=== PATIENT | male | born 1960 | race African-American/Black ===

== ENCOUNTER 2024-09-26 16:56 | Inpatient (IN) | payer BC, OTHER ==
[2024-09-26 17:24] VITALS: BMI 21.9
[2024-09-26] MEDS ORDERED: guaiFENesin 600 MG TABLET.ER (FP) PO PRN (18:00)
[2024-09-26] MEDS ORDERED: ACETAMINOPHEN 325 MG TABLET (FP) PO PRN (18:00)
[2024-09-26] MEDS ORDERED: P-EPHED 60MG/TRIPROLIDI 2.5MG TABLET PO PRN (18:00)
[2024-09-26] MEDS ORDERED: hydrOXYzine PAMOATE 25 MG CAPSULE (FP) PO PRN (18:00)
[2024-09-26] MEDS ORDERED: IBUPROFEN 400 MG TABLET (FP) PO PRN (18:00)
[2024-09-26] MEDS ORDERED: MAGNESIUM HYDROX 2400MG/30ML ORAL SUSPENSION 30 ML CUP PO PRN (18:00)
[2024-09-26] MEDS ORDERED: IBUPROFEN 600 MG TABLET (FP) PO PRN (18:00)
[2024-09-26] MEDS ORDERED: LOPERAMIDE HCL 2 MG CAPSULE PO PRN (18:00)
[2024-09-26] MEDS ORDERED: NALOXONE (NARCAN) HCL 4 MG/0.1 ML SPRAY NS PRN (18:00)
[2024-09-26] MEDS ORDERED: BENZONATATE 200 MG CAPSULE PO PRN (18:00)
[2024-09-26] MEDS ORDERED: POLYETHYLENE GLYCOL (HEALTHYLAX) 3350 17 GM PACKET PO PRN (18:00)
[2024-09-26] MEDS ORDERED: propRANOLol HCL 10 MG TABLET ONE (18:57)
[2024-09-26] MEDS: propRANOLol HCL 10 MG TABLET PO ONE (19:06)
[2024-09-26] MEDS: TUBERCULIN PPD 5 TU/0.1ML SYRINGE (IN PATIENT USE ONLY) ID ONE (21:51)
[2024-09-26] MEDS: amLODIPine BESYLATE 5 MG TABLET (FP) PO SCH (22:02)
[2024-09-26] MEDS: MELATONIN 5 MG TABLETS PO SCH (22:02)
[2024-09-26] MEDS: THIAMINE 100 MG TABLET PO SCH (22:02)
[2024-09-26] MEDS: ASPIRIN COATED 81 MG TABLET.EC PO SCH (22:02)
[2024-09-26] MEDS ORDERED: TUBERCULIN PPD 5 TU/0.1ML VIAL ID ONE (22:33)
[2024-09-27] MEDS: PRENATAL VITAMINS W/ FOLIC ACID TABLET (FP) PO SCH (09:34)
[2024-09-27 11:44] LABS: HEMATOCRIT 35.8 % (35.4-49); HEMOGLOBIN 11.3 GM/dL (11.7-16.9); MCH 29.1 pg (25.7-33.7); MCHC 31.6 g/dl (32.0-35.9); MEAN CELL VOLUME 91.9 fl (80-96); MEAN PLT VOLUME 10.4 fl (7.5-11.1); PLATELET COUNT 143 10^3/uL (134-434); RDW 15.3 % (11.9-15.9); WHITE BLOOD COUNT 4.6 K/mm3 (4.0-10.0)
[2024-09-27 12:16] LABS: CHLORIDE 112 mmol/L (98-107); POTASSIUM 4.2 mmol/L (3.5-5.1); SODIUM 141 mmol/L (136-145)
[2024-09-27 12:19] LABS: CALCIUM 8.4 mg/dL (8.5-10.1)
[2024-09-27 12:20] LABS: ALBUMIN 2.8 g/dl (3.4-5.0); ANION GAP 2 mmol/L (4-13); BLOOD UREA NITROGEN 15.5 mg/dL (7-18); CO2 27 mmol/L (21-32); GLUCOSE,RANDOM 106 mg/dL (74-106)
[2024-09-27 12:23] LABS: CREATININE 1.2 mg/dL (0.55-1.3); SGOT/AST 22 U/L (15-37); SGPT/ALT 26 U/L (13-61)
[2024-09-27 12:24] LABS: BILIRUBIN,TOTAL 0.2 mg/dL (0.2-1)
[2024-09-27 12:25] LABS: TOT PROT 6.4 g/dl (6.4-8.2)
[2024-09-27 12:26] LABS: ALK PHOS 63 U/L (45-117)
[2024-09-27 15:08] LABS: PH,URINE 6.5 (5.0-8.0); URINE APPEARANCE CLEAR; URINE BILIRUBIN NEGATIVE (NEGATIVE); URINE COLOR YELLOW; URINE GLUCOSE (UA) NEGATIVE (NEGATIVE); URINE KETONE TRACE (NEGATIVE); URINE LEUK ESTERASE NEGATIVE (NEGATIVE); URINE NITRITE NEGATIVE (NEGATIVE); URINE PROTEIN NEGATIVE (NEGATIVE)
[2024-09-28] MEDS ORDERED: cloNIDine HCL 0.1 MG TABLET PO PRN (15:43)
[2024-09-28] MEDS: amLODIPine BESYLATE 5 MG TABLET (FP) PO ONE (15:55)
[2024-09-29] MEDS: METOPROLOL TARTRATE 25 MG TABLET (FP) PO SCH (09:14)
[2024-09-29] MEDS: amLODIPine BESYLATE 10 MG TABLET (FP) PO SCH (09:14)
[2024-09-29] MEDS: PNEUMOC 20-VAL CONJ-DIP CRM/PF 0.5 ML SYRINGE IM ONE (11:49)
[2024-09-30] MEDS: METOPROLOL TARTRATE 25 MG TABLET (FP) PO SCH (19:02)
[2024-10-04] MEDS: SALICYLIC ACID (WART REMOVER) 9 ML LIQUID TP SCH (15:12)
[2024-10-04] MEDS: BACLOFEN 10 MG TABLET (FP) PO SCH (21:52)
[2024-10-07] MEDS: MAG HYDROX/AL HYDROX/SIMETH 30 ML UNIT-DOSE CUP PO PRN (11:04)
[2024-10-07] MEDS: ASPIRIN 325 MG ENTERIC COATED TABLET (FP) PO ONE (12:00)
[2024-10-08] MEDS: ACETAMINOPHEN 325 MG TABLET (FP) PO PRN (23:02)
[2024-10-08] MEDS: BENZOCAINE/MENTHOL (CHLORASEPTIC ) LOZENGE MM PRN (23:03)
[2024-10-10] MEDS: BENZOCAINE 20 % GEL TUBE MM PRN (21:33)
[2024-10-14] MEDS: BENZOCAINE 20 % GEL TUBE MM PRN (14:25)
[2024-10-16] MEDS: AMOX TR/POT CLAV 875MG/125MG TABLETS (FP) PO SCH (17:21)
[2024-10-25 09:11] VITALS: BP 129/70; PULSE 60; RESP 18; TEMP 98
== END 2024-10-25 09:10 | disposition home or self-care (01) | DRG 772 ==
LOC: YASAS 16:56 → Y3E 19:31
PROVIDERS: ADMIT Psychiatry & Neurology Pain Medicine; ATTEND Psychiatry & Neurology Pain Medicine
PROC: HZ42ZZZ Group Counseling for Substance Abuse Treatment, Cognitive-Behavioral (ICD-10-PCS; principal; 2024-10-06)
DX: F14.20 Cocaine dependence, uncomplicated (principal); I25.10 Atherosclerotic heart disease of native coronary artery without angina pectoris; I10 Essential (primary) hypertension; I25.2 Old myocardial infarction; Z95.5 Presence of coronary angioplasty implant and graft; K02.9 Dental caries, unspecified; M25.561 Pain in right knee; G89.29 Other chronic pain; L84 Corns and callosities; R60.0 Localized edema; Z87.891 Personal history of nicotine dependence
CPT/HCPCS: 36415; 80053; 80305; 80307; 81003; 85027; 86780; 87811; 90677; 93005; 93010; G0009; J0475